=== PATIENT | female | born 1930 ===

== ENCOUNTER 2017-06-25 08:58 | Outpatient (CLI) | payer OTHER ==
[~2017-06-25] VITALS: Ht 152.4 cm; Wt 57.6 kg
== END 2017-06-25 09:15 | disposition home or self-care (01) ==
LOC: OFIC 805 08:58
DX: H61.23 Impacted cerumen, bilateral (principal); H93.13 Tinnitus, bilateral; J31.0 Chronic rhinitis; H90.3 Sensorineural hearing loss, bilateral